=== PATIENT | female | born 1990 | race Hispanic/Latino ===

== ENCOUNTER 2017-03-27 19:23 | Emergency (ER) | payer OTHER ==
[2017-03-27 19:32] VITALS: BMI 20.3
--- NOTE | 2017-03-27 19:32 | ED PDOC ---
Arrival/HPI - General Historian: Patient - General Time Seen by Provider: 03/27/17 19:32 - History of Present Illness Narrative History of Present Illness (Text): 03/27/17 19:32 26 y/o female, no significant pmh, nkda, c/o dark color urine and whole body itching x 1 day. Pt. stated that she has throat infection and her pmd prescribed her amoxicillin, experienced body itching around the neck and arm after taking it for 2 days which she has been taking penicillin before. Pt. also noticed that she has dark color urine as single episode which she is concern, no flank pain, no urinary symptoms, no fever or chills, no palpitation , no rash, no neck stiffness, no other medical or psychological complaints. ( Rei Mcnally) Past Medical History - Provider Review Nursing Documentation Reviewed: Yes Family/Social History - Physician Review Nursing Documentation Reviewed: Yes Family/Social History: Unknown Family HX Allergies/Home Meds Allergies/Adverse Reactions: Allergies No Known Allergies Allergy (Verified 03/27/17 19:32) Review of Systems - Review of Systems Constitutional: absent: Fatigue, Fevers Eyes: absent: Vision Changes ENT: Sore Throat. absent: Hearing Changes Respiratory: absent: SOB, Cough Cardiovascular: absent: Chest Pain Gastrointestinal: absent: Abdominal Pain, Diarrhea, Nausea, Vomiting Skin: Rash, Pruritis. absent: Skin Lesions, Laceration, Abscess, Ulcer, Cellulitis Neurological: absent: Headache, Dizziness Physical Exam - Systems Exam Head: Present: Atraumatic, Normocephalic Pupils: Present: PERRL Extroacular Muscles: Present: EOMI Conjunctiva: Present: Normal Ears: Present: NORMAL TM, Normal Canal. No: Erythema Mouth: Present: Moist Mucous Membranes. No: Normal Teeth Pharnyx: Present: ERYTHEMA. No: EXUDATE, TONSILS ENLARGED, Uvular Deviation, Muffled/Hoarse Voice, Soft Palate/Uvular Edema Nose (External): No: Abrasion, Contusion Nose (Internal): Present: Normal Inspection. No: No Active Bleeding Neck: Present: Normal Range of Motion, Trachea Midline. No: MIDLINE TENDERNESS , Paraspinal Tenderness, Lymphadenopathy Respiratory/Chest: Present: Clear to Auscultation, Good Air Exchange. No: Respiratory Distress, Accessory Muscle Use Cardiovascular: Present: Regular Rate and Rhythm, Normal S1, S2. No: Murmurs Abdomen: Present: Normal Bowel Sounds. No: Tenderness, Distention, Peritoneal Signs, Rebound, Guarding Back: Present: Normal Inspection. No: CVA Tenderness, Midline Tenderness Upper Extremity: Present: Normal Inspection. No: Cyanosis, Edema Lower Extremity: Present: Normal Inspection. No: Edema Neurological: Present: GCS=15, Speech Normal, Motor Func Grossly Intact, Gait Normal, Memory Normal Skin: Present: Warm, Dry, Rashes (visible papule rash around the forearm and anterior chest region, no bullseye or target signs. ), Normal Color Psychiatric: Present: Alert, Oriented x 3, Normal Insight, Normal Concentration Vital Signs Temp Pulse Resp BP Pulse Ox 03/27/17 20:50 68 17 125/80 100 03/27/17 19:23 98.0 F 70 18 128/78 99 Medical Decision Making - Lab Interpretations I have reviewed the lab results: Yes Interpretation: No clinic. lab abnormalty ED Course and Treatment: 03/27/17 19:48 -benadryl/decadron/azithromycin 500mg po -labs -ua -observe and reassess 03/27/17 20:38 -Urine hcg: negative -Labs are non-significant with normal bun and creatine -UA show no UTI -Pt. feels better, itching resolved, stable to be discharged home. -Discharge home with benadryl, zithromax, motrin, stay hydrated, bed rest, follow up with your own pmd and ENT within 2 days, return to the ER for any new or worsening signs or symptoms. (Rei Mcnally) - Lab Interpretations Lab Results: 03/27/17 20:05 03/27/17 20:05 Lab Results 03/27/17 20:05: Urine Color Yellow, Urine Appearance Clear, Urine pH 6.0, Ur Specific [place] <= 1.005, Urine Protein Negative, Urine Glucose (UA) Negative, Urine Ketones Negative, Urine Blood Negative, Urine Nitrate Negative, Urine Bilirubin Negative, Urine Urobilinogen 0.2, Ur Leukocyte Esterase Negative 03/27/17 20:05: WBC 3.8 L, RBC 4.56, Hgb 13.9, Hct 40.3, MCV 88.4, MCH 30.5, MCHC 34.5, RDW 12.2, Plt Count 251, MPV 9.4, Gran % 60.9, Lymph % (Auto) 29.7, [place] % (Auto) 7.1 H, Eos % (Auto) 1.8, Baso % (Auto) 0.5, Gran # 2.32, Lymph # 1.1 L, [place] # 0.3, Eos # 0.1, Baso # 0.02 03/27/17 20:05: Sodium 141, Potassium 4.2, Chloride 102, Carbon Dioxide 27, Anion Gap 16, BUN 14, Creatinine 0.7, Est GFR ( Amer) > 60, Est GFR (Non- Af Amer) > 60, Random Glucose 95, Calcium 9.8, Total Bilirubin 1.2, AST 22, ALT 19, Alkaline Phosphatase 59, Total Protein 8.0, Albumin 5.1 H, Globulin 3.0, Albumin/Globulin Ratio 1.7 03/27/17 20:05: Grp A Beta Strep Ag Negative - Medication Orders Current Medication Orders: Discontinued Medications Azithromycin (Zithromax) 500 mg PO STAT STA PRN Reason: Protocol Stop: 03/27/17 19:45 Last Admin: 03/27/17 20:18 Dose: 500 mg Dexamethasone (Decadron Inj) 10 mg IM STAT STA Stop: 03/27/17 19:45 Last Admin: 03/27/17 20:18 Dose: 10 mg IM Administration Charges Document 03/27/17 20:18 SF (Rec: 03/27/17 20:18 [id number] Injection Site MAR Injection Site Left Deltoid Charges for Administration # of IM Administrations 1 Diphenhydramine HCl (Benadryl) 50 mg PO STAT STA Stop: 03/27/17 19:44 Last Admin: 03/27/17 20:18 Dose: 50 mg - PA / [employer]AD [employer]PERVISOR / Resident Statement MD/DO has reviewed & agrees with the documentation as recorded. Disposition/Present on Arrival - Present on Arrival Any Indicators Present on Arrival: No History of DVT/PE: No History of Uncontrolled Diabetes: No Urinary Catheter: No History of Decub. Ulcer: No - Disposition Have Diagnosis and Disposition been Completed?: Yes Disposition Time: 20:40 Patient Plan: Discharge - Disposition Diagnosis: Pharyngitis, Medication adverse effect Disposition: HOME/ ROUTINE Condition: IMPROVED Additional Instructions: -Discharge home with benadryl, zithromax, motrin, stay hydrated, bed rest, follow up with your own pmd and ENT within 2 days, return to the ER for any new or worsening signs or symptoms. Prescriptions: Azithromycin [Zithromax] 250 mg PO DAILY #4 tab DiphenhydrAMINE [Benadryl] 50 mg PO QID PRN #20 cap PRN Reason: Other Ibuprofen [Motrin] 600 mg PO QID PRN #35 tab PRN Reason: Other Referrals: Reinaldo Denney DO [[facility]] - Follow up with primary Delano Hendrix MD [Staff Provider] - Follow up with primary Forms: WORK NOTE
[2017-03-27 20:11] VITALS: TEMP 98
[2017-03-27 20:27] LABS: BASO # 0.02 K/mm3 (0.0-2.0); BASO % 0.5 % (0.0-3.0); EOS # 0.1 (0.0-0.7); EOS % 1.8 % (1.5-5.0); GRAN # 2.32 (1.4-6.5); GRAN % 60.9 % (50.0-68.0); HEMATOCRIT 40.3 % (36.0-48.0); LYMPH # 1.1 (1.2-3.4); LYMPH % 29.7 % (22.0-35.0); MEAN CELL VOLUME 88.4 fl (80.0-105.0); MEAN CORPUSCULAR HEMOGLOBIN 30.5 pg (25.0-35.0); MEAN CORPUSCULAR HGB CONC 34.5 g/dl (31.0-37.0); MEAN PLATELET VOLUME 9.4 fl (7.0-11.0); MONO # 0.3 (0.1-0.6); MONO % 7.1 % (1.0-6.0); RED CELL DISTRIBUTION WIDTH 12.2 % (11.5-14.5); URINE APPEARANCE CLEAR (CLEAR); URINE BILIRUBIN NEGATIVE (NEGATIVE); URINE BLOOD NEGATIVE (NEGATIVE); URINE COLOR YELLOW (YELLOW); URINE GLUCOSE (UA) NEGATIVE (NEGATIVE); URINE KETONE NEGATIVE (NEGATIVE); URINE LEUKOCYTE ESTERASE NEGATIVE Leu/uL (NEGATIVE); URINE PROTEIN NEGATIVE mg/dL (<30 mg/dL); URINE UROBILINOGEN 0.2 E.U./dL (<1 E.U./dL); WHITE BLOOD COUNT 3.8 10^3/ul (4.5-11.0)
[2017-03-27 20:28] LABS: ALB/GLOB RATIO 1.7 (1.1-1.8); ALKALINE PHOSPHATASE 59 U/L (38-126); ALT/SGPT 19 U/L (7-56); AST/SGOT 22 U/L (14-36); BILIRUBIN,TOTAL 1.2 mg/dL (0.2-1.3); BLOOD UREA NITROGEN 14 mg/dL (7-21); CALCIUM 9.8 mg/dL (8.4-10.5); CARBON DIOXIDE 27 mmol/L (21-33); CHLORIDE 102 mmol/L (98-107); GFR AFRICAN-AMERICAN > 60; GLUCOSE,RANDOM 95 mg/dL (70-110); POTASSIUM 4.2 mmol/L (3.6-5.0); SODIUM 141 mmol/L (132-148)
[2017-03-27 20:52] VITALS: BP 125/80; PULSE 68; RESP 17; O2SAT 100
== END 2017-03-27 20:52 | disposition home or self-care (01) ==
LOC: ED 19:23
DX: L29.9 Pruritus, unspecified (principal); T36.0X5A Adverse effect of penicillins, initial encounter; J02.9 Acute pharyngitis, unspecified
CPT/HCPCS: 80053; 81003; 85025; 87070; 87430; 96372; 99284; J1100